=== PATIENT | female | born 1950 | race Caucasian/White ===

== ENCOUNTER 2016-12-26 05:31 | Inpatient (IN) | payer OTHER, MEDICARE ==
[2016-12-16 13:07] LABS: URINE BILIRUBIN NEGATIVE (Negative); URINE BLOOD 1+ (Negative); URINE COLOR YELLOW; URINE GLUCOSE-RANDOM* NEGATIVE (Negative); URINE KETONES NEGATIVE (Negative); URINE LEUKOCYTES-REFLEX NEGATIVE (Negative); URINE PROTEIN (DIPSTICK) NEGATIVE (Negative); URINE SPECIFIC GRAVITY 1.025 (1.003-1.035); URINE UROBILINOGEN 0.2 E.U./dl (0.2-1.0)
[2016-12-16 13:11] LABS: HEMATOCRIT 43.8 % (37.0-47.0); HEMOGLOBIN 14.6 gm/dL (12.0-15.0); MCH 28.1 pg (26.0-34.0); MCHC 33.4 g/dL (28.0-37.0); MCV 84.3 fL (80.0-100.0); RBC 5.2 mil/uL (4.20-5.00); RDW 13.5 % (10.5-14.5); WBC 8.6 thou/uL (4.0-11.0)
[2016-12-16 13:13] LABS: SQUAMOUS 0-3 Few /LPF (0-3)
[2016-12-16 13:14] LABS: CASTS None Seen /LPF (None Seen); CRYSTALS None Seen /LPF (None Seen); URINE RBC None Seen /HPF (0-2); URINE WBC-REFLEX 0-5 Rare /HPF (0-5)
[2016-12-16 13:18] LABS: CALCIUM 9.4 mg/dL (8.5-10.1); POTASSIUM 3.5 mmol/L (3.5-5.1)
[2016-12-16 13:28] LABS: PROTIME 10.7 Seconds (9.3-11.4)
[~2016-12-26] VITALS: Ht 172.7 cm; Wt 102.1 kg
[2016-12-26] VITALS (7 sets, daily range): BP systolic 105–141; BP diastolic 69–106
--- NOTE | ~2016-12-26 | O ---
[facility] [place] [address] OPERATIVE REPORT Name: TONIE ZHAO Room #: 150-1 ADM IN M.R.#: [id number] Admission: 12/26/16 Attend Phys: Jad Herron MD Discharge: Date of : 48 Report #: [id number] THIS REPORT FOR: //name// CC: Corky Herron DATE OF SERVICE: 12/26/2016 PREOPERATIVE DIAGNOSIS: Right shoulder degenerative joint disease, severe. POSTOPERATIVE DIAGNOSIS: Right shoulder degenerative joint disease, severe. PROCEDURE: Right shoulder total shoulder arthroplasty. SURGEON: Jad Herron M.D. WARRANT SERVER: TIMOTHY Marr. INDICATIONS FOR WARRANT SERVER: During the course of operation, extensive manipulation, retraction and limb positioning was required. This was afforded to me by my print shop assistant. ANESTHETIC: General. INDICATIONS: See hospital history and physical. IMPLANTS UTILIZED: We used a DePuy shoulder system. We used a size 12 standard stem with an anatomic proximal body 135 degree neck angle. We used the eccentric humeral head, size 48 x 15 and we used an [place] Peg size 44 mm. DESCRIPTION OF PROCEDURE: After adequate general anesthesia had been obtained, the patient was placed in the beach chair position. Right shoulder and upper extremity was prepped and draped in the usual meticulous sterile fashion. An anterior incision was made in the right shoulder, subQ divided sharply. Hemostasis obtained with electrocautery. Deltopectoral groove was identified and developed. We released about a centimeter of the proximal pectoralis tendon. The biceps tendon was tenodesed to the pectoralis tendon and then divided. The tendon was traced proximally. The was released. We then peeled the subscapularis off of the lesser tuberosity. The capsule was released anteriorly and from the subscapularis tendon. The supraspinatus was inspected as the MRI has suggested a partial thickness tear. The tendon actually had only a minor undersurface fraying, but was for the most part intact, so I elected to do a standard total shoulder replacement. The humeral head was delivered into the wound. The rongeur was used to remove the [facility] [address] [place] [address] OPERATIVE REPORT Name: CECETONIE LUC Room #: 150 ADM IN [facility].#: [id number] Admission: 12/26/16 Attend Phys: Jad Herron MD Discharge: Date of : 48 Report #: [id number] osteophytes. The neck osteotomy guide was put into position. The neck cut marked and then a saw was used to make a cut. The head protector was put into position. We then released the capsule from the glenoid circumferentially and then the glenoid was circumferentially exposed. We determined that size 44 was appropriate size for this patient as she did not have much deformity. So, we placed the drill guide into position and drilled the pin into position. The reamer was then used to sequentially ream the glenoid until we had a good flat surface. The central peg hole was drilled and then the drill guide was placed and the surrounding peg holes were drilled. The wound was irrigated copiously. We put the trial into position and had a good press fit. We then removed the trial, irrigated copiously with pulse lavage irrigation, mixed the cement. We bone grafted the central peg and then placed cement in the surrounding peg holes after thoroughly drying and then impacted the prosthesis into position and excellent press fit was obtained. Compression was placed on the glenoid until the cement fully cured. The humerus was then delivered into the wound. We sequentially reamed the humerus up to a size 12. We then placed the broach into position in about 30 degrees of retroversion and impacted it into the position. The trial head was placed and we found that a 44 eccentric gave us the best reapproximation of her anatomy, then did a trial reduction. We found good stability parameters and so we elected to use this implant. The implant was then removed. The shoulder was irrigated copiously. We placed sutures through the lesser tuberosity for subscapularis repair. The implant was then impacted into position. The shoulder was then reduced. Subscapularis first was repaired with the #2 FiberWire suture. We obtained meticulous hemostasis, placed a drain deep in the wound, placed 1 gram of vancomycin powder into the wound. The deltoid fascia was then closed with a running 2-0 Vicryl, subQ closed with 2-0 Monocryl, skin closed with anthony. Sterile compressive dressing was applied. By: [id number] Jad Herron MD /hansa
[~2016-12-26 05:31] MED LIST: ALTOPREV OR; ALTOPREV10 MG PO; ASPIR 8181 MG PO; ASPIRIN OR; COLACE100 MG PO; COUMADIN 4 MG TA4 M1 PO; HYDROCHLOROTHIA25 M1 PO; HYDROCHLOROTHIA25 M2 PO; LIPITOR 20 MG T20 M1 PO; LIPITOR10 MG PO; LOPRESSOR100 MG PO; LOPRESSOR25 PO; LOVASTATIN 20 M20 MG PO; MACROBID 100 M100 M1 PO; MIRALAX255 GM PO; MULTIVITAMINS PO; NORCO 10-325 T1 EACH PO; NORVASC5 MG PO; PERCOCET 10-321 EACH; PERCOCET 10-321 EACH PO; POTASSIUM20 PO; PREMARIN OR; PROVERA2.5 MG PO; SENOKOT-S1 TA1 PO; STOOL SOFTENER100 MG PO; TOPROL XL50 MG PO; TRAMADOL 50 MG50 MG PO; ULTRAM 50MG TAB50 MG PO; VISTARIL 25 MG25 M1 GT; XARELTO10 MG PO
[2016-12-27] VITALS: BP 111/75
[2016-12-27 06:19] VITALS: BP 121/68
[2016-12-27 06:38] LABS: HEMOGLOBIN 11.2 gm/dL (12.0-15.0)
[2016-12-27 07:23] VITALS: BP 111/71
[2016-12-27 09:59] LABS: DIRECT BILIRUBIN 0.1 mg/dL (<0.1-0.3); TOTAL BILIRUBIN 0.5 mg/dL (<0.1-1.0); TOTAL PROTEIN 6.1 g/dL (6.4-8.2)
[2016-12-27 13:14] VITALS: BP 111/71
[2016-12-27] MEDS ORDERED: ASPIRIN325 PO (13:17)
== END 2016-12-27 14:05 | disposition home or self-care (01) | DRG 483 ==
LOC: TBA 05:31 → 4N 05:31 → PRE 10:08 → 4N 13:40 → ENTRNSPT 12-27 13:48 → EDTRNSPTSTS 12-27 13:52 → 4N 12-27 14:05
PROVIDERS: Hospitalist; Orthopaedic Surgery
PROC: 0RRJ0JZ Replacement of Right Shoulder Joint with Synthetic Substitute, Open Approach (ICD-10-PCS; principal; 2016-12-26)
DX: M19.011 Primary osteoarthritis, right shoulder (principal); I10 Essential (primary) hypertension; Z96.652 Presence of left artificial knee joint; E78.5 Hyperlipidemia, unspecified; Z96.643 Presence of artificial hip joint, bilateral; Z60.2 Problems related to living alone; M75.111 Incomplete rotator cuff tear or rupture of right shoulder, not specified as traumatic; Z79.82 Long term (current) use of aspirin; Z79.899 Other long term (current) drug therapy; Z90.49 Acquired absence of other specified parts of digestive tract; Z82.61 Family history of arthritis; Z82.49 Family history of ischemic heart disease and other diseases of the circulatory system
CPT/HCPCS: 10790; 50010; 50101; 50172; 50386; 50417; 50612; 50697; 50733; 50935; 51412; 51771; 52138; 53000; 53078; 55435; 56524; 56525; 56526; 56527; 56530; 57095; 62110; 62900; 64039; 70005

== ENCOUNTER → 2020-07-10 | Outpatient (CLI) | payer OTHER, MEDICARE ==
[~2020-07-10] MED LIST changes: +ASPIRIN325 PO
== END ==
LOC: SJCVCIMAG 08:00
PROVIDERS: ATTEND Internal Medicine Cardiovascular Disease
DX: I25.10 Atherosclerotic heart disease of native coronary artery without angina pectoris (principal); E78.5 Hyperlipidemia, unspecified; I10 Essential (primary) hypertension; E78.00 Pure hypercholesterolemia, unspecified; Z79.82 Long term (current) use of aspirin; Z79.899 Other long term (current) drug therapy; Z87.891 Personal history of nicotine dependence; Z72.89 Other problems related to lifestyle

== ENCOUNTER → 2020-07-13 | Outpatient (CLI) | payer OTHER, MEDICARE | LOC: SJCVCIMAG 07:57 | PROVIDERS: ATTEND Internal Medicine Cardiovascular Disease | DX: I49.9 Cardiac arrhythmia, unspecified (principal); R06.00 Dyspnea, unspecified; I10 Essential (primary) hypertension; E78.00 Pure hypercholesterolemia, unspecified; R60.9 Edema, unspecified; I25.10 Atherosclerotic heart disease of native coronary artery without angina pectoris; E78.5 Hyperlipidemia, unspecified; Z79.82 Long term (current) use of aspirin; Z79.899 Other long term (current) drug therapy; Z87.891 Personal history of nicotine dependence; Z72.89 Other problems related to lifestyle ==